=== PATIENT | female | born 1990 | race Two or more races ===

== ENCOUNTER 2023-06-02 01:17 | Emergency (ER) | payer OTHER ==
[~2023-06-02] VITALS: Ht 154.9 cm; Wt 65.8 kg
[2023-06-02] MEDS ORDERED: PRENATABS RX T1 EACH (01:28)
[2023-06-02 02:21] LABS: URINE APPEARANCE Clear; URINE BILIRRUBIN Negative (NEGATIVE); URINE BLOOD Negative; URINE COLOR Yellow; URINE GLUCOSE Negative (NEGATIVE); URINE LEUKOCYTE Negative; URINE NITRATE Negative; URINE PROTEIN Negative (NEGATIVE); URINE UROBILINOGEN 0.2 E.U./dl
[2023-06-02 02:22] LABS: URINE EPITHELIAL CELLS 1.6 uL (0.0-38.8); URINE RBC 4.1 uL (0.0-20.8)
[2023-06-02 02:22] LABS: HEMATOCRIT 34.1 % (36.0-45.00); HEMOGLOBIN 11.8 g/dL (12.0-15.00); MEAN CELL VOLUME 87.8 fL (80.00-100.00); MEAN CORPUSCULAR HEMOGLOBIN 30.3 pg (27.00-32.0); MEAN CORPUSCULAR HGB CONC 34.6 g/dl (32.0-36.0); PLATELET COUNT 303 K/uL (150-450); RED BLOOD COUNT 3.89 M/uL (4.00-6.00); RED CELL DISTRIBUTION WIDTH 13.9 % (11.5-14.5)
[2023-06-02 02:39] LABS: URINE WBC 1.3 uL (0.0-23.2)
[2023-06-02 02:57] LABS: INR 1.01; PARTIAL THROMBOPLASTIN TIME 28.8 SECONDS (22.0-34.0); PROTHROMBIN TIME 10.6 SECONDS (9.0-11.5)
[2023-06-02 03:15] LABS: CALCIUM 9.4 mg/dL (8.5-10.1); CREATININE SERUM 0.55 mg/dL (0.55-1.02); GFR 129.78; POTASSIUM 3.21 mEq/L (3.5-5.1)
== END 2023-06-02 07:21 ==
LOC: ER 01:18
PROVIDERS: General Practice
DX: O20.9 Hemorrhage in early pregnancy, unspecified (principal); Z3A.09 9 weeks gestation of pregnancy; Z88.2 Allergy status to sulfonamides

== ENCOUNTER 2023-06-14 11:57 | Outpatient (CLI) | payer OTHER ==
[~2023-06-14 11:57] MED LIST: PRENATABS RX T1 EACH
== END 2023-06-14 12:01 | disposition home or self-care (01) ==
LOC: PRENATAL 11:57
PROVIDERS: ATTEND Obstetrics & Gynecology Maternal & Fetal Medicine
DX: O36.80X0 Pregnancy with inconclusive fetal viability, not applicable or unspecified (principal); Z36.82 Encounter for antenatal screening for nuchal translucency; Z3A.11 11 weeks gestation of pregnancy

== ENCOUNTER 2023-10-08 08:06 | Outpatient (CLI) | payer OTHER | END 2023-10-08 08:07 | disposition home or self-care (01) | LOC: PRENATAL 08:06 | PROVIDERS: ATTEND Obstetrics & Gynecology Maternal & Fetal Medicine | DX: O26.849 Uterine size-date discrepancy, unspecified trimester (principal); O36.8199 Decreased fetal movements, unspecified trimester, other fetus; Z3A.28 28 weeks gestation of pregnancy ==

== ENCOUNTER → 2023-11-04 09:00 | Outpatient (CLI) | payer OTHER | END | disposition home or self-care (01) | LOC: PRENATAL 09:00 | PROVIDERS: ATTEND Obstetrics & Gynecology Maternal & Fetal Medicine | DX: O26.843 Uterine size-date discrepancy, third trimester (principal); O36.8130 Decreased fetal movements, third trimester, not applicable or unspecified; O99.013 Anemia complicating pregnancy, third trimester; Z3A.32 32 weeks gestation of pregnancy ==

== ENCOUNTER 2023-12-08 13:34 | Inpatient (IN) | payer OTHER ==
[~2023-12-08] VITALS: Ht 154.9 cm; Wt 72.6 kg
[2023-12-08 13:47] VITALS: O2SAT 99
--- NOTE | 2023-12-08 13:50 | NUR ---
PTE ALERTA Y ORIENTADA X3 REFIERE PRESENTAR RASH DESDE HACE KIEL SEMANA APROX EN AREA DEL ABDOMEN, AMBAS PIERNAS Y BRAZOS. PTE EMBARAZADA DE 36 SEMANAS; MANANA 37 SEMANAS.
[2023-12-08 15:58] VITALS: BP 117/79
[2023-12-08] MEDS ORDERED: PRENATABS RX T1 EACH PO (17:10)
[2023-12-08] MEDS ORDERED: RINGERS SOLUTION,LACTATED 1,000 ML IV SCH (18:15)
[2023-12-08] MEDS ORDERED: DIPHENHYDRAMINE HCL 50 MG/ML VIAL 1ML IV ONE (18:15)
[2023-12-08 18:21] LABS: HEMATOCRIT 32.5 % (36.0-45.00); MEAN CELL VOLUME 85.7 fL (80.00-100.00); MEAN CORPUSCULAR HGB CONC 33.8 g/dl (32.0-36.0); PLATELET COUNT 267 K/uL (150-450); RED CELL DISTRIBUTION WIDTH 14.3 % (11.5-14.5)
[2023-12-08 18:22] LABS: PH,URINE 6.5 (5.0-8.0); URINE APPEARANCE Clear; URINE BILIRRUBIN Negative (NEGATIVE); URINE BLOOD Negative; URINE COLOR Yellow; URINE GLUCOSE Negative (NEGATIVE); URINE KETONE Trace (NEGATIVE); URINE LEUKOCYTE Moderate; URINE NITRATE Negative; URINE PROTEIN Negative (NEGATIVE); URINE UROBILINOGEN 0.2 E.U./dl
[2023-12-08 18:26] LABS: URINE BACTERIA 7114.6 uL (0.0-1933); URINE CAST 1.52 uL (0.0-1.40); URINE RBC 9.1 uL (0.0-20.8); URINE WBC 171.9 uL (0.0-23.2)
[2023-12-08 18:40] LABS: INR 0.94; PARTIAL THROMBOPLASTIN TIME 25.3 SECONDS (22.0-34.0); PROTHROMBIN TIME 10.3 SECONDS (9.0-11.5)
[2023-12-08 18:46] LABS: ALBUMIN 2.7 gm/dL (3.4-5.0); BILIRUBIN TOTAL 0.6 mg/dL (0.3-1.2); CALCIUM 9.2 mg/dL (8.5-10.1); CREATININE SERUM 0.58 mg/dL (0.55-1.02); GFR 121.25; POTASSIUM 3.7 mEq/L (3.5-5.1); TOTAL PROTEIN 6.7 gm/dL (6.4-8.2)
[2023-12-08] MEDS ORDERED: hydrOXYzine PAMOATE 50 MG CAPSULE PO SCH (21:00)
[2023-12-08 23:13] VITALS: BP 120/72
[2023-12-09 03:21] VITALS: BP 126/76
[2023-12-09 07:20] VITALS: BP 123/74
[2023-12-09] MEDS ORDERED: DIPHENHYDRAMINE HCL 50 MG/ML VIAL 1ML IV ONE (09:45)
[2023-12-09 11:07] LABS: ALBUMIN 2.7 gm/dL (3.4-5.0); BILIRUBIN TOTAL 0.65 mg/dL (0.3-1.2); CALCIUM 9.6 mg/dL (8.5-10.1); CREATININE SERUM 0.67 mg/dL (0.55-1.02); GFR 102.66; GLOBULINA 4.1 G/DL (2.4-3.5); POTASSIUM 3.93 mEq/L (3.5-5.1); TOTAL PROTEIN 6.8 gm/dL (6.4-8.2)
[2023-12-09 11:08] VITALS: BP 116/66
[2023-12-09] MEDS ORDERED: DIPHENHYDRAMINE HCL 50 MG/ML VIAL 1ML IV SCH (14:30)
[2023-12-09 15:25] VITALS: BP 120/72
[2023-12-09 17:52] VITALS: BP 121/74
[2023-12-10 00:31] VITALS: BP 114/73
[2023-12-10 02:43] VITALS: BP 128/76
[2023-12-10 07:39] VITALS: BP 115/67
[2023-12-10 10:28] LABS: BILIRUBIN TOTAL 0.61 mg/dL (0.3-1.2); CALCIUM 9.7 mg/dL (8.5-10.1); CREATININE SERUM 0.59 mg/dL (0.55-1.02); GFR 118.88; GLOBULINA 4.5 G/DL (2.4-3.5); POTASSIUM 3.97 mEq/L (3.5-5.1); TOTAL PROTEIN 7.5 gm/dL (6.4-8.2)
[2023-12-10 11:05] VITALS: BP 134/64
[2023-12-10 15:14] VITALS: BP 126/70
== END 2023-12-10 16:51 | disposition home or self-care (01) | DRG 833 ==
LOC: ER 13:35 → LDR 18:01 → OB/GYN 12-09 15:49
PROVIDERS: ADMIT Obstetrics & Gynecology; ATTEND Obstetrics & Gynecology
PROC: 4A1HXCZ Monitoring of Products of Conception, Cardiac Rate, External Approach (ICD-10-PCS; principal; 2023-12-08)
DX: O26.86 Pruritic urticarial papules and plaques of pregnancy (PUPPP) (principal); Z3A.37 37 weeks gestation of pregnancy; Z20.822 Contact with and (suspected) exposure to COVID-19

== ENCOUNTER 2023-12-19 11:03 | Inpatient (IN) | payer OTHER ==
[2023-12-16 12:08] LABS: HEMATOCRIT 30.7 % (36.0-45.00); HEMOGLOBIN 10.2 g/dL (12.0-15.00); MEAN CELL VOLUME 85.7 fL (80.00-100.00); MEAN CORPUSCULAR HEMOGLOBIN 28.5 pg (27.00-32.0); MEAN CORPUSCULAR HGB CONC 33.3 g/dl (32.0-36.0); PLATELET COUNT 246 K/uL (150-450); RED BLOOD COUNT 3.58 M/uL (4.00-6.00); RED CELL DISTRIBUTION WIDTH 15.1 % (11.5-14.5)
[2023-12-16 12:35] LABS: INR 0.94; PARTIAL THROMBOPLASTIN TIME 25.1 SECONDS (22.0-34.0); PROTHROMBIN TIME 10.3 SECONDS (9.0-11.5)
[2023-12-16 12:47] LABS: ALBUMIN 2.7 gm/dL (3.4-5.0); BILIRUBIN TOTAL 0.69 mg/dL (0.3-1.2); CALCIUM 9.2 mg/dL (8.5-10.1); CREATININE SERUM 0.62 mg/dL (0.55-1.02); GFR 112.27; GLOBULINA 3.8 G/DL (2.4-3.5); POTASSIUM 3.97 mEq/L (3.5-5.1); TOTAL PROTEIN 6.5 gm/dL (6.4-8.2)
[~2023-12-19] VITALS: Ht 154.9 cm; Wt 76.2 kg
[~2023-12-19 11:03] MED LIST changes: +PRENATABS RX T1 EACH PO
[2023-12-19] MEDS ORDERED: RINGERS SOLUTION,LACTATED 1,000 ML IV SCH (19:45)
[2023-12-19 19:47] VITALS: BP 134/79
[2023-12-19] MEDS ORDERED: MISOPROSTOL 25 MCG/4 ML GEL.W.APPL VAG ONE (20:30)
[2023-12-19] MEDS ORDERED: DIPHENHYDRAMINE HCL 50 MG/ML VIAL 1ML IV SCH (21:00)
[2023-12-19 23:21] VITALS: BP 132/78
[2023-12-20 03:35] VITALS: BP 128/75
[2023-12-20 07:30] VITALS: BP 127/68
[2023-12-20] MEDS ORDERED: OXYTOCIN 500 ML IV SCH (08:30)
[2023-12-20 09:46] LABS: HEMATOCRIT 30.8 % (36.0-45.00); HEMOGLOBIN 10.3 g/dL (12.0-15.00); MEAN CELL VOLUME 85.5 fL (80.00-100.00); MEAN CORPUSCULAR HEMOGLOBIN 28.6 pg (27.00-32.0); MEAN CORPUSCULAR HGB CONC 33.4 g/dl (32.0-36.0); PLATELET COUNT 214 K/uL (150-450); RED CELL DISTRIBUTION WIDTH 15.4 % (11.5-14.5)
[2023-12-20 10:41] LABS: INR < 0.93; PARTIAL THROMBOPLASTIN TIME 26.2 SECONDS (22.0-34.0); PROTHROMBIN TIME 10.2 SECONDS (9.0-11.5)
[2023-12-20 11:03] LABS: ALBUMIN 2.6 gm/dL (3.4-5.0); BILIRUBIN TOTAL 0.69 mg/dL (0.3-1.2); CALCIUM 9.1 mg/dL (8.5-10.1); CREATININE SERUM 0.8 mg/dL (0.55-1.02); GFR 83.66; GLOBULINA 3.7 G/DL (2.4-3.5); POTASSIUM 3.75 mEq/L (3.5-5.1); TOTAL PROTEIN 6.3 gm/dL (6.4-8.2)
[2023-12-20 11:10] LABS: URIC ACID 6.7 mg/dL (2.5-7.5)
[2023-12-20 11:40] VITALS: BP 132/83
[2023-12-20] MEDS ORDERED: MEPERIDINE HCL/PF 25 MG/ML VIAL IV STA (14:12)
[2023-12-20] MEDS ORDERED: PROMETHAZINE HCL 25 MG/ML AMPUL IV STA (14:13)
[2023-12-20 14:20] VITALS: BP 140/79; O2SAT 98
[2023-12-20 15:28] VITALS: BP 121/58
[2023-12-20 16:05] LABS: HEMATOCRIT 31.6 % (36.0-45.00); HEMOGLOBIN 10.4 g/dL (12.0-15.00); MEAN CELL VOLUME 85.8 fL (80.00-100.00); MEAN CORPUSCULAR HEMOGLOBIN 28.1 pg (27.00-32.0); MEAN CORPUSCULAR HGB CONC 32.8 g/dl (32.0-36.0); PLATELET COUNT 218 K/uL (150-450); RED BLOOD COUNT 3.69 M/uL (4.00-6.00); RED CELL DISTRIBUTION WIDTH 15.2 % (11.5-14.5)
[2023-12-20 16:46] LABS: ALBUMIN 2.6 gm/dL (3.4-5.0); BILIRUBIN TOTAL 0.77 mg/dL (0.3-1.2); CREATININE SERUM 0.6 mg/dL (0.55-1.02); GFR 116.6; GLOBULINA 3.6 G/DL (2.4-3.5); POTASSIUM 3.53 mEq/L (3.5-5.1); TOTAL PROTEIN 6.2 gm/dL (6.4-8.2)
[2023-12-20] MEDS ORDERED: CEFAZOLIN SODIUM 1,000 MG VIAL ONE (22:14)
[2023-12-20] MEDS ORDERED: OXYTOCIN 10 UNITS/ML VIAL ONE (22:23)
[2023-12-20] MEDS ORDERED: ERYTHROMYCIN BASE OPHT 1GM EACH TUBE OP ONE (22:23)
[2023-12-20] MEDS ORDERED: CEFAZOLIN SODIUM 1,000 MG VIAL IV ONE (22:30)
[2023-12-20] MEDS ORDERED: MEPERIDINE HCL/PF 50 MG/ML VIAL IM PRN (22:45)
[2023-12-20] MEDS ORDERED: PROMETHAZINE HCL 50 MG/ML AMPUL IM PRN (22:45)
[2023-12-20] MEDS ORDERED: KETOROLAC TROMETHAMINE 30 MG VIAL IV SCH (23:00)
[2023-12-21 03:47] VITALS: BP 128/78
[2023-12-21] MEDS ORDERED: OxyCODONE HCL/APAP UD (PERCOCET) PO PRN (08:00)
[2023-12-21 08:34] VITALS: BP 121/76
[2023-12-21] MEDS ORDERED: DOCUSATE SODIUM 100MG CAP PO SCH (09:00)
[2023-12-21] MEDS ORDERED: PNV,CALCIUM 72/IRON/FOLIC ACID 1 TAB TABLET PO SCH (09:00)
[2023-12-21] MEDS ORDERED: SIMETHICONE 125 MG CAPSULE PO SCH (09:00)
[2023-12-21 09:32] LABS: HEMATOCRIT 31.7 % (36.0-45.00); HEMOGLOBIN 9.8 g/dL (12.0-15.00); MEAN CORPUSCULAR HEMOGLOBIN 20.9 pg (27.00-32.0); MEAN CORPUSCULAR HGB CONC 31.1 g/dl (32.0-36.0); PLATELET COUNT 331 K/uL (150-450); RED CELL DISTRIBUTION WIDTH 18.2 % (11.5-14.5)
[2023-12-21 09:45] LABS: MEAN CELL VOLUME 67.3 fL (80.00-100.00)
[2023-12-21 10:30] LABS: BILIRUBIN TOTAL 0.91 mg/dL (0.3-1.2); CALCIUM 8.4 mg/dL (8.5-10.1); CREATININE SERUM 0.68 mg/dL (0.55-1.02); GFR 100.92; GLOBULINA 4.3 G/DL (2.4-3.5); POTASSIUM 4.3 mEq/L (3.5-5.1); TOTAL PROTEIN 7.3 gm/dL (6.4-8.2)
[2023-12-21 12:40] VITALS: BP 140/74
[2023-12-21] MEDS ORDERED: IBUprofen 800 MG TABLET PO SCH (17:00)
[2023-12-21] MEDS ORDERED: POLYETHYLENE GLYCOL 3350 17 GM BLIST.PACK PO SCH (17:00)
[2023-12-21 17:18] VITALS: BP 124/80
[2023-12-22 00:16] VITALS: BP 121/75
[2023-12-22 08:20] VITALS: BP 134/82
[2023-12-22 17:56] VITALS: BP 135/84
[2023-12-23 00:54] VITALS: BP 123/77
[2023-12-23 08:44] VITALS: BP 134/84
== END 2023-12-23 15:11 | disposition home or self-care (01) | DRG 786 ==
LOC: LDR 11:03 → OB/GYN 12-20 23:50
PROVIDERS: ADMIT Obstetrics & Gynecology; ATTEND Obstetrics & Gynecology
PROC: 4A1HXCZ Monitoring of Products of Conception, Cardiac Rate, External Approach (ICD-10-PCS; 2023-12-19)
PROC: 3E0P7VZ Introduction of Hormone into Female Reproductive, Via Natural or Artificial Opening (ICD-10-PCS; 2023-12-19)
PROC: 3E033VJ Introduction of Other Hormone into Peripheral Vein, Percutaneous Approach (ICD-10-PCS; 2023-12-20)
PROC: 10D00Z1 Extraction of Products of Conception, Low, Open Approach (ICD-10-PCS; principal; 2023-12-20 23:00)
DX: O61.0 Failed medical induction of labor (principal); K83.1 Obstruction of bile duct; O26.643 Intrahepatic cholestasis of pregnancy, third trimester; O62.1 Secondary uterine inertia; O26.86 Pruritic urticarial papules and plaques of pregnancy (PUPPP); O36.8330 Maternal care for abnormalities of the fetal heart rate or rhythm, third trimester, not applicable or unspecified; O75.89 Other specified complications of labor and delivery; N80.8 Other endometriosis; O33.8 Maternal care for disproportion of other origin; Z3A.38 38 weeks gestation of pregnancy; Z37.0 Single live birth; Z20.822 Contact with and (suspected) exposure to COVID-19